=== PATIENT | male | born 1950 | race Caucasian/White ===

== ENCOUNTER → 2025-09-10 10:28 | Outpatient (REF) | payer MEDICARE, SELFPAY | LOC: RAD 10:28 | PROVIDERS: ATTENDING PHYSICIAN Family Medicine | DX: M79.89 Other specified soft tissue disorders (principal); I87.2 Venous insufficiency (chronic) (peripheral); I73.9 Peripheral vascular disease, unspecified | CPT/HCPCS: 71260; 74177; 93970; Q9967 ==

== ENCOUNTER → 2025-09-26 12:35 | Outpatient (REF) | payer MEDICARE, SELFPAY | LOC: RAD 12:35 | PROVIDERS: ATTENDING PHYSICIAN Family Medicine | DX: I73.9 Peripheral vascular disease, unspecified (principal) | CPT/HCPCS: 93922; 93925 ==